=== PATIENT | female | born 1930 | race Asian ===

== ENCOUNTER 2016-11-01 11:53 | Inpatient (IN) | payer OTHER ==
[~2016-11-01] VITALS: Ht 162.6 cm; Wt 72.4 kg
[~2016-11-01 11:53] MED LIST: ALEN70TA14 PO; ASPI-556 GT; ATOR20TA86 PO; CLOP75 GT; DOCU250C76 GT; FLUO-125 PO; METF500T7 PO; MIRT15TA PO; MULT1TAB70 PO; PANT40TA25 PO; PREG50 PO; QUET50TA22 PO; TEMA15CA PO; [UNRECOGNIZED DRUG - CODE] PO
[2016-11-01 13:09] LABS: BASOPHILS % (AUTO) 0.4 % (0.0-2.0); EOSINOPHILS % (AUTO) 2.1 % (1.0-6.0); HEMOGLOBIN 13.4 g/dL (12.0-16.0); LYMPHOCYTES # (AUTO) 1.8 K/uL (1.0-4.8); LYMPHOCYTES % (AUTO) 17.4 % (22.0-44.0); MEAN CORPUSCULAR HEMOGLOBIN 31.7 pg (26.0-34.0); MEAN CORPUSCULAR HGB CONC 32.7 G/dL (31.0-37.0); MEAN CORPUSCULAR VOLUME 97 fL (80-100); MONOCYTES % (AUTO) 9.4 % (2.0-9.0); NEUTROPHILS # (AUTO) 7.4 K/uL (1.8-7.7); NEUTROPHILS % (AUTO) 70.7 % (40.0-70.0); PLATELET COUNT (AUTO) 290 K/uL (150-450); RED BLOOD CELL COUNT(AUTO) 4.24 MIL/uL (4.00-5.20); RED CELL DISTRIBUTION WIDTH 14.8 % (11.5-14.5); WHITE BLOOD COUNT (AUTO) 10.5 K/uL (4.5-11.0)
[2016-11-01 13:21] LABS: CALCIUM, TOTAL 10.7 mg/dL (8.8-10.5); POTASSIUM 4.3 mmol/L (3.5-5.1)
[2016-11-01 13:27] LABS: ALBUMIN 3.6 g/dL (3.4-5.0); BILIRUBIN,TOTAL 0.5 mg/dL (0.1-1.0); TOTAL PROTEIN, SERUM 8.3 g/dL (6.4-8.2)
[2016-11-01] MEDS ORDERED: SODIUM CHLORIDE 0.9% 1,000 ML IV ONE (14:00)
[2016-11-01] MEDS ORDERED: ACETAMINOPHEN 325 MG TABLET PO PRN (14:45)
[2016-11-01] MEDS ORDERED: 0.9% SODIUM CHLORIDE 10 ML SYRINGE IVP PRN (14:45)
[2016-11-01] MEDS ORDERED: ONDANSETRON HCL 4 MG/2 ML VIAL IVP PRN (14:45)
[2016-11-01 15:07] LABS: INR 1.1 (0.9-1.1); PROTHROMBIN TIME 12.1 SEC (9.4-11.6)
[2016-11-01 16:34] VITALS: BP 151/65
[2016-11-01] MEDS ORDERED: DEXTROSE 50%-WATER 25 GM/50 ML SYRINGE IVP PRN (18:00)
[2016-11-01] MEDS: SODIUM CHLORIDE 0.9% 1,000 ML IV SCH (18:26)
[2016-11-01] MEDS: INSULIN ASPART 100 UNITS/ML SQ PRN (18:27)
[2016-11-01 18:36] LABS: GLUCOSE,POINT OF CARE 317 MG/DL (70-110)
[2016-11-01 19:46] VITALS: BP 134/63
[2016-11-01 20:41] LABS: GLUCOSE COMMENT 1 Received Meds; GLUCOSE,POINT OF CARE 271 MG/DL (70-110)
[2016-11-02 00:26] VITALS: BP 159/89
[2016-11-02] MEDS: SODIUM CHLORIDE 0.9% 1,000 ML IV SCH ×3 (02:32→18:36)
[2016-11-02 04:18] VITALS: BP 155/80
[2016-11-02 06:16] LABS: GLUCOSE,POINT OF CARE 228 MG/DL (70-110)
[2016-11-02 08:00] VITALS: BP 141/56
[2016-11-02] MEDS ORDERED: DIATRIZOATE MEGLU/SOD 660/100 MG/ML 120 ML BOTTLE ONE (08:46)
[2016-11-02 10:46] LABS: BASOPHILS % (AUTO) 0.4 % (0.0-2.0); EOSINOPHILS % (AUTO) 2.3 % (1.0-6.0); HEMATOCRIT 37.9 % (36-46); HEMOGLOBIN 12.3 g/dL (12.0-16.0); LYMPHOCYTES % (AUTO) 22.8 % (22.0-44.0); MEAN CORPUSCULAR HEMOGLOBIN 31.6 pg (26.0-34.0); MEAN CORPUSCULAR HGB CONC 32.4 G/dL (31.0-37.0); MEAN CORPUSCULAR VOLUME 97 fL (80-100); MONOCYTES # (AUTO) 1.1 K/uL (0.1-1.0); MONOCYTES % (AUTO) 12.9 % (2.0-9.0); NEUTROPHILS # (AUTO) 5.3 K/uL (1.8-7.7); NEUTROPHILS % (AUTO) 61.6 % (40.0-70.0); PLATELET COUNT (AUTO) 278 K/uL (150-450); RED BLOOD CELL COUNT(AUTO) 3.89 MIL/uL (4.00-5.20); RED CELL DISTRIBUTION WIDTH 14.4 % (11.5-14.5); WHITE BLOOD COUNT (AUTO) 8.6 K/uL (4.5-11.0)
[2016-11-02 10:57] LABS: CALCIUM, TOTAL 9.4 mg/dL (8.8-10.5); CREATININE 1.66 mg/dL (0.60-1.30); POTASSIUM 4.6 mmol/L (3.5-5.1)
[2016-11-02 11:02] LABS: ALBUMIN 3.1 g/dL (3.4-5.0); BILIRUBIN,TOTAL 0.4 mg/dL (0.1-1.0); MAGNESIUM 2.1 mg/dL (1.80-2.40); PHOSPHORUS 2.8 mg/dL (2.5-4.9); TOTAL PROTEIN, SERUM 7.5 g/dL (6.4-8.2)
[2016-11-02] MEDS: INSULIN ASPART 100 UNITS/ML SQ PRN ×3 (11:34→20:28)
[2016-11-02 12:00] VITALS: BP 154/80
[2016-11-02 12:06] LABS: GLUCOSE COMMENT 1 Received Meds; GLUCOSE,POINT OF CARE 232 MG/DL (70-110)
[2016-11-02 15:20] VITALS: BP 155/86
[2016-11-02 17:41] LABS: GLUCOSE COMMENT 1 Received Meds; GLUCOSE,POINT OF CARE 273 MG/DL (70-110)
[2016-11-02] MEDS ORDERED: HYDROCODONE/ACETAMINOPHEN 5-325 MG TABLET PO PRN (19:00)
[2016-11-02] MEDS ORDERED: MetFORMIN HCL 500 MG ER TABLET PO SCH (19:00)
[2016-11-02 20:03] VITALS: BP 133/51
[2016-11-02] MEDS: TEMAZEPAM 15 MG CAPSULE PO SCH (20:23)
[2016-11-02] MEDS: ATORVASTATIN CALCIUM 20 MG TABLET PO SCH (20:23)
[2016-11-02] MEDS: QUEtiapine FUMARATE 25 MG TABLET PO SCH (20:23)
[2016-11-02] MEDS: PREGABALIN 50 MG CAPSULE PO SCH (20:23)
[2016-11-02] MEDS: MULTIVITAMINS, THERAPEUTIC TABLET PO SCH (20:23)
[2016-11-02] MEDS: FLUoxetine HCL 10 MG CAPSULE PO SCH (20:24)
[2016-11-02] MEDS: DOCUSATE SODIUM 250 MG CAPSULE PO SCH (20:25)
[2016-11-02] MEDS: MIRTAZAPINE 15 MG TABLET PO SCH (20:29)
[2016-11-02 20:35] LABS: GLUCOSE COMMENT 1 Received Meds; GLUCOSE,POINT OF CARE 255 MG/DL (70-110)
[2016-11-02] MEDS ORDERED: DOCUSATE SODIUM 250 MG CAPSULE PO SCH (21:00)
[2016-11-03 00:35] VITALS: BP 102/57
[2016-11-03 05:21] VITALS: BP 129/61
[2016-11-03] MEDS: SODIUM CHLORIDE 0.9% 1,000 ML IV SCH ×2 (05:29→10:00)
[2016-11-03] MEDS: INSULIN ASPART 100 UNITS/ML SQ PRN ×4 (05:59→21:55)
[2016-11-03 08:09] VITALS: BP 129/81
[2016-11-03 08:16] LABS: GLUCOSE COMMENT 1 Received Meds; GLUCOSE,POINT OF CARE 232 MG/DL (70-110)
[2016-11-03] MEDS: DOCUSATE SODIUM 250 MG CAPSULE PO SCH ×4 (09:00→21:00)
[2016-11-03] MEDS: MetFORMIN HCL 500 MG TABLET PO SCH ×2 (09:33→17:50)
[2016-11-03] MEDS: PANTOPRAZOLE SODIUM 40 MG DR TABLET PO SCH (09:34)
[2016-11-03] MEDS: CLOPIDOGREL BISULFATE 75 MG TABLET PO SCH (09:34)
[2016-11-03] MEDS: PREGABALIN 50 MG CAPSULE PO SCH ×3 (09:34→21:02)
[2016-11-03] MEDS: MULTIVITAMINS, THERAPEUTIC TABLET PO SCH (09:35)
[2016-11-03 11:20] LABS: BASOPHILS % (AUTO) 0.1 % (0.0-2.0); EOSINOPHILS % (AUTO) 2.3 % (1.0-6.0); HEMATOCRIT 34.6 % (36-46); HEMOGLOBIN 11.2 g/dL (12.0-16.0); LYMPHOCYTES # (AUTO) 1.8 K/uL (1.0-4.8); LYMPHOCYTES % (AUTO) 21.6 % (22.0-44.0); MEAN CORPUSCULAR HEMOGLOBIN 31.8 pg (26.0-34.0); MEAN CORPUSCULAR HGB CONC 32.4 G/dL (31.0-37.0); MEAN CORPUSCULAR VOLUME 98 fL (80-100); MONOCYTES % (AUTO) 12.3 % (2.0-9.0); NEUTROPHILS # (AUTO) 5.3 K/uL (1.8-7.7); NEUTROPHILS % (AUTO) 63.7 % (40.0-70.0); PLATELET COUNT (AUTO) 233 K/uL (150-450); RED BLOOD CELL COUNT(AUTO) 3.53 MIL/uL (4.00-5.20); RED CELL DISTRIBUTION WIDTH 14.9 % (11.5-14.5); WHITE BLOOD COUNT (AUTO) 8.4 K/uL (4.5-11.0)
[2016-11-03 11:41] LABS: ALBUMIN 2.7 g/dL (3.4-5.0); BILIRUBIN,TOTAL 0.3 mg/dL (0.1-1.0); CALCIUM, TOTAL 8.6 mg/dL (8.8-10.5); CREATININE 1.61 mg/dL (0.60-1.30); PHOSPHORUS 2.3 mg/dL (2.5-4.9); POTASSIUM 4.1 mmol/L (3.5-5.1); TOTAL PROTEIN, SERUM 6.6 g/dL (6.4-8.2)
[2016-11-03 12:12] VITALS: BP 149/68
[2016-11-03 13:10] LABS: GLUCOSE,POINT OF CARE 277 MG/DL (70-110)
[2016-11-03 18:06] LABS: GLUCOSE COMMENT 1 Received Meds; GLUCOSE,POINT OF CARE 258 MG/DL (70-110)
[2016-11-03 20:12] VITALS: BP 161/73
[2016-11-03] MEDS: FLUoxetine HCL 10 MG CAPSULE PO SCH (21:01)
[2016-11-03] MEDS: MIRTAZAPINE 15 MG TABLET PO SCH (21:01)
[2016-11-03] MEDS: TEMAZEPAM 15 MG CAPSULE PO SCH (21:02)
[2016-11-03] MEDS: QUEtiapine FUMARATE 25 MG TABLET PO SCH (21:02)
[2016-11-03] MEDS: ATORVASTATIN CALCIUM 20 MG TABLET PO SCH (21:02)
[2016-11-03 22:58] VITALS: BP 116/51
[2016-11-04 04:49] VITALS: BP 130/68
[2016-11-04] MEDS: INSULIN ASPART 100 UNITS/ML SQ PRN ×2 (06:34→11:18)
[2016-11-04 08:10] VITALS: BP 158/77
[2016-11-04] MEDS: CLOPIDOGREL BISULFATE 75 MG TABLET PO SCH (08:19)
[2016-11-04] MEDS: MetFORMIN HCL 500 MG TABLET PO SCH (08:19)
[2016-11-04] MEDS: PANTOPRAZOLE SODIUM 40 MG DR TABLET PO SCH (08:19)
[2016-11-04] MEDS: DOCUSATE SODIUM 250 MG CAPSULE PO SCH (08:19)
[2016-11-04] MEDS: PREGABALIN 50 MG CAPSULE PO SCH (08:19)
[2016-11-04] MEDS: MULTIVITAMINS, THERAPEUTIC TABLET PO SCH (08:19)
[2016-11-04 11:00] VITALS: BP 15/62
[2016-11-04 11:26] LABS: GLUCOSE COMMENT 1 Received Meds; GLUCOSE,POINT OF CARE 236 MG/DL (70-110)
[2016-11-04 11:46] LABS: GLUCOSE,POINT OF CARE 223 MG/DL (70-110)
[2016-11-04 11:46] LABS: GLUCOSE,POINT OF CARE 216 MG/DL (70-110)
== END 2016-11-04 14:15 | DRG 394 ==
LOC: EMS 11:55 → 6N 14:40
PROVIDERS: ADMIT Internal Medicine; ATTEND Internal Medicine
PROC: 0D20XUZ Change Feeding Device in Upper Intestinal Tract, External Approach (ICD-10-PCS; principal; 2016-11-02)
DX: K94.23 Gastrostomy malfunction (principal); N17.9 Acute kidney failure, unspecified; I69.354 Hemiplegia and hemiparesis following cerebral infarction affecting left non-dominant side; Z51.5 Encounter for palliative care; Z66 Do not resuscitate; E11.65 Type 2 diabetes mellitus with hyperglycemia; I25.10 Atherosclerotic heart disease of native coronary artery without angina pectoris; I71.4 Abdominal aortic aneurysm, without rupture; K21.9 Gastro-esophageal reflux disease without esophagitis; K59.00 Constipation, unspecified; E78.00 Pure hypercholesterolemia, unspecified; I50.9 Heart failure, unspecified; I11.0 Hypertensive heart disease with heart failure; G89.29 Other chronic pain; F03.90 Unspecified dementia, unspecified severity, without behavioral disturbance, psychotic disturbance, mood disturbance, and anxiety; M25.512 Pain in left shoulder; I69.319 Unspecified symptoms and signs involving cognitive functions following cerebral infarction; Z79.899 Other long term (current) drug therapy; Z79.02 Long term (current) use of antithrombotics/antiplatelets; Z79.82 Long term (current) use of aspirin; Z74.01 Bed confinement status; Z87.440 Personal history of urinary (tract) infections; Y84.8 Other medical procedures as the cause of abnormal reaction of the patient, or of later complication, without mention of misadventure at the time of the procedure; Y92.128 Other place in nursing home as the place of occurrence of the external cause; Y93.89 Activity, other specified; Y99.8 Other external cause status
CPT/HCPCS: 36245; 43246; 43760; 82962; 83735; 84100; 87106; 96360; 99285; J7030

== ENCOUNTER 2016-11-05 05:46 | Inpatient (IN) | payer OTHER ==
[~2016-11-05] VITALS: Ht 165.1 cm; Wt 72.4 kg
[2016-11-05 06:01] LABS: GLUCOSE,POINT OF CARE 371 MG/DL (70-110)
[2016-11-05] MEDS ORDERED: ACETAMINOPHEN 1000 MG/ISO-OSM 100 ML IV ONE (06:15)
[2016-11-05] MEDS ORDERED: 0.9% SODIUM CHLORIDE 10 ML SYRINGE IVP PRN (06:15)
[2016-11-05] MEDS ORDERED: SODIUM CHLORIDE 0.9% 1,000 ML IV ONE ×2 (06:15→07:15)
[2016-11-05] MEDS ORDERED: CefTRIAXone 1 GM/DEXTROSE 50 ML IV ONE (06:15)
[2016-11-05] MEDS ORDERED: AZITHROMYCIN 500 MG/NS 250 ML IV ONE (06:15)
[2016-11-05 06:38] LABS: HEMATOCRIT 44.8 % (36-46); HEMOGLOBIN 14.4 g/dL (12.0-16.0); MEAN CORPUSCULAR HEMOGLOBIN 31.9 pg (26.0-34.0); MEAN CORPUSCULAR HGB CONC 32.2 G/dL (31.0-37.0); MEAN CORPUSCULAR VOLUME 99 fL (80-100); PLATELET COUNT (AUTO) 358 K/uL (150-450); RED BLOOD CELL COUNT(AUTO) 4.52 MIL/uL (4.00-5.20); RED CELL DISTRIBUTION WIDTH 14.9 % (11.5-14.5)
[2016-11-05 06:44] LABS: WHITE BLOOD COUNT (AUTO) 35.1 K/uL (4.5-11.0)
[2016-11-05 06:57] LABS: APPEARANCE,URINE TURBID (CLEAR); GLUCOSE, URINE (UA) NEGATIVE (NEGATIVE); KETONES,URINE NEGATIVE (NEGATIVE); LEUKOCYTE ESTERASE ,URINE LARGE (NEGATIVE); OCCULT BLOOD,URINE LARGE (NEGATIVE); PROTEIN,URINE SEE CONFIRM (NEGATIVE)
[2016-11-05 06:58] LABS: ALANINE AMINOTRANSFERASE 59 U/L (12-78); ANION GAP 12 mmol/L (8-16); ASPARTATE AMINOTRANSFERASE 41 U/L (15-37); BILIRUBIN,TOTAL 0.2 mg/dL (0.1-1.0); CALCIUM, TOTAL 8.9 mg/dL (8.8-10.5); CARBON DIOXIDE 21 mmol/L (22-29); CHLORIDE 106 mmol/L (98-107); CREATININE 1.89 mg/dL (0.60-1.30); GLOMERULAR FILTR. RATE CALC 25 mL/min (>60); POTASSIUM 5.3 mmol/L (3.5-5.1); SODIUM SERUM 139 mmol/L (136-145); TOTAL PROTEIN, SERUM 8.2 g/dL (6.4-8.2); UREA NITROGEN, BLOOD 33 mg/dL (7-18)
[2016-11-05 07:01] LABS: ADD UA MICROSCOPIC YES
[2016-11-05 07:07] LABS: RBC,URINE Full Field /HPF (0-2); WBC,URINE Full Field /HPF (0-5)
[2016-11-05 07:08] LABS: SULFOSALICYLIC ACID,URINE 4+ (Negative)
[2016-11-05 07:09] LABS: B-TYPE NATRIURETIC PEPTIDE 1930 pg/mL (0-100)
[2016-11-05 07:11] LABS: BAND NEUTROPHILS % (MANUAL) 2 % (1-5); LYMPHOCYTES % (MANUAL) 10 % (22-44); METAMYELOCYTES % 1 % (0-0); TOTAL CELLS COUNTED 100
[2016-11-05 07:12] LABS: RBC MORPHOLOGY COMMENT NORMAL RBC MORPH; WBC MORPHOLOGY TOXIC GRANULATION
[2016-11-05 08:13] LABS: PROCALCITONIN (PCT) 0.15 ng/mL (<0.50)
[2016-11-05 08:30] LABS: REFLEX LACTIC ACID? YES YES
[2016-11-05] MEDS ORDERED: INSULIN REGULAR, HUMAN 100 UNITS/ML IVP ONE (08:45)
[2016-11-05 11:10] LABS: GLUCOSE,POINT OF CARE 244 MG/DL (70-110)
[2016-11-05 13:16] VITALS: BP 88/48
[2016-11-05] MEDS ORDERED: HYDROCODONE/ACETAMINOPHEN 5-325 MG TABLET PO PRN (13:45)
[2016-11-05 15:32] VITALS: BP 111/72
[2016-11-05] MEDS: DOCUSATE SODIUM 250 MG CAPSULE PO SCH ×2 (18:37→23:46)
[2016-11-05] MEDS: MetFORMIN HCL 500 MG ER TABLET PO SCH (18:37)
[2016-11-05] MEDS: PREGABALIN 50 MG CAPSULE PO SCH ×2 (18:37→23:46)
[2016-11-05] MEDS ORDERED: DEXTROSE 50%-WATER 25 GM/50 ML SYRINGE IVP PRN (19:15)
[2016-11-05] MEDS ORDERED: 0.9% SODIUM CHLORIDE 5 ML NEB SOLUTION NEB ONE (19:24)
[2016-11-05] MEDS: INSULIN ASPART 100 UNITS/ML SQ PRN ×2 (19:35→23:46)
[2016-11-05] MEDS: ALBUTEROL SULFATE 2.5 MG/0.5 ML NEB SOLUTION NEB SCH (19:40)
[2016-11-05] MEDS: IPRATROPIUM BROMIDE 0.5 MG/2.5 ML NEB SOLUTION NEB SCH (19:40)
[2016-11-05] MEDS: LACTOBACILLUS ACIDOPHILUS/BULGARICUS TABLET PO SCH (19:47)
[2016-11-05] MEDS: ATORVASTATIN CALCIUM 20 MG TABLET PO SCH (19:47)
[2016-11-05] MEDS: MIRTAZAPINE 15 MG TABLET PO SCH (19:47)
[2016-11-05] MEDS: FLUoxetine HCL 10 MG CAPSULE PO SCH (19:55)
[2016-11-05] MEDS: QUEtiapine FUMARATE 25 MG TABLET PO SCH (19:56)
[2016-11-05] MEDS ORDERED: IPRATROPIUM BROMIDE 0.5 MG/2.5 ML NEB SOLUTION NEB SCH (20:00)
[2016-11-05 20:03] VITALS: BP 77/39
[2016-11-05 20:11] LABS: GLUCOSE,POINT OF CARE 264 MG/DL (70-110)
[2016-11-05] MEDS ORDERED: MIRTAZAPINE 15 MG TABLET PO SCH (21:00)
[2016-11-05] MEDS ORDERED: METOPROLOL TARTRATE 25 MG TABLET PO SCH (21:00)
[2016-11-05 23:14] VITALS: BP 88/53
[2016-11-05] MEDS: TEMAZEPAM 15 MG CAPSULE PO SCH (23:47)
[2016-11-05 23:57] LABS: GLUCOSE COMMENT 1 Received Meds; GLUCOSE,POINT OF CARE 235 MG/DL (70-110)
[2016-11-06] MEDS: ALBUTEROL SULFATE 2.5 MG/0.5 ML NEB SOLUTION NEB SCH ×4 (02:05→19:30)
[2016-11-06] MEDS: IPRATROPIUM BROMIDE 0.5 MG/2.5 ML NEB SOLUTION NEB SCH ×4 (02:06→19:30)
[2016-11-06 04:43] VITALS: BP 97/43
[2016-11-06] MEDS: INSULIN ASPART 100 UNITS/ML SQ PRN ×3 (05:35→18:59)
[2016-11-06 06:15] LABS: GLUCOSE COMMENT 1 Received Meds; GLUCOSE,POINT OF CARE 210 MG/DL (70-110)
[2016-11-06] MEDS ORDERED: ALENDRONATE SODIUM 70 MG TABLET PO SCH (06:30)
[2016-11-06 06:32] LABS: BASOPHILS % (AUTO) 0.3 % (0.0-2.0); EOSINOPHILS % (AUTO) 0.4 % (1.0-6.0); HEMATOCRIT 33.2 % (36-46); HEMOGLOBIN 10.6 g/dL (12.0-16.0); LYMPHOCYTES % (AUTO) 14.7 % (22.0-44.0); MEAN CORPUSCULAR HEMOGLOBIN 31.6 pg (26.0-34.0); MEAN CORPUSCULAR HGB CONC 31.9 G/dL (31.0-37.0); MEAN CORPUSCULAR VOLUME 99 fL (80-100); MONOCYTES # (AUTO) 0.8 K/uL (0.1-1.0); NEUTROPHILS # (AUTO) 10.8 K/uL (1.8-7.7); NEUTROPHILS % (AUTO) 78.6 % (40.0-70.0); PLATELET COUNT (AUTO) 225 K/uL (150-450); RED BLOOD CELL COUNT(AUTO) 3.35 MIL/uL (4.00-5.20); RED CELL DISTRIBUTION WIDTH 15.1 % (11.5-14.5); WHITE BLOOD COUNT (AUTO) 13.7 K/uL (4.5-11.0)
[2016-11-06 07:21] VITALS: BP 120/58
[2016-11-06 07:32] LABS: ALBUMIN 2.4 g/dL (3.4-5.0); BILIRUBIN,TOTAL 0.2 mg/dL (0.1-1.0); CALCIUM, TOTAL 7.8 mg/dL (8.8-10.5); CREATININE 2.34 mg/dL (0.60-1.30); MAGNESIUM 2.3 mg/dL (1.80-2.40); PHOSPHORUS 2.8 mg/dL (2.5-4.9); POTASSIUM 5.1 mmol/L (3.5-5.1); TOTAL PROTEIN, SERUM 6.5 g/dL (6.4-8.2)
[2016-11-06] MEDS ORDERED: ASPIRIN 81 MG EC TABLET PO SCH (09:00)
[2016-11-06] MEDS ORDERED: PANTOPRAZOLE SODIUM 40 MG DR TABLET PO SCH (09:00)
[2016-11-06] MEDS: CLOPIDOGREL BISULFATE 75 MG TABLET PO SCH (09:14)
[2016-11-06] MEDS: DOCUSATE SODIUM 250 MG CAPSULE PO SCH ×3 (09:14→21:48)
[2016-11-06] MEDS: CefTRIAXone 1 GM/DEXTROSE 50 ML IV SCH (09:14)
[2016-11-06] MEDS: MULTIVITAMINS, THERAPEUTIC TABLET PO SCH (09:14)
[2016-11-06] MEDS: ASPIRIN 81 MG EC TABLET PO SCH (09:14)
[2016-11-06] MEDS: LACTOBACILLUS ACIDOPHILUS/BULGARICUS TABLET PO SCH ×4 (09:15→20:18)
[2016-11-06] MEDS: BUMETANIDE 1 MG TABLET PO SCH (09:15)
[2016-11-06] MEDS: MetFORMIN HCL 500 MG ER TABLET PO SCH ×2 (09:16→17:38)
[2016-11-06] MEDS: PREGABALIN 50 MG CAPSULE PO SCH ×3 (09:16→20:17)
[2016-11-06] MEDS: INSULIN GLARGINE,HUM.REC.ANLOG 100 UNITS/ML SQ SCH (09:17)
[2016-11-06] MEDS ORDERED: SODIUM CHLORIDE 0.9% 500 ML IV ONE (09:23)
[2016-11-06] MEDS: AZITHROMYCIN 500 MG/NS 250 ML IV SCH (11:19)
[2016-11-06] MEDS: PANTOPRAZOLE SODIUM 40 MG/VIAL IVP SCH (11:26)
[2016-11-06 11:29] VITALS: BP 90/46
[2016-11-06 11:57] LABS: GLUCOSE,POINT OF CARE 226 MG/DL (70-110)
[2016-11-06 15:42] VITALS: BP 93/49
[2016-11-06 18:36] LABS: GLUCOSE,POINT OF CARE 187 MG/DL (70-110)
[2016-11-06 19:09] VITALS: BP 132/73
[2016-11-06] MEDS: FLUoxetine HCL 10 MG CAPSULE PO SCH (20:17)
[2016-11-06] MEDS: ATORVASTATIN CALCIUM 20 MG TABLET PO SCH (20:18)
[2016-11-06] MEDS: QUEtiapine FUMARATE 25 MG TABLET PO SCH (20:18)
[2016-11-06] MEDS: SODIUM CHLORIDE 0.9% 1,000 ML IV SCH (21:48)
[2016-11-06] MEDS: MIRTAZAPINE 15 MG TABLET PO SCH (21:48)
[2016-11-06 23:28] VITALS: BP 133/63
[2016-11-06] MEDS: TEMAZEPAM 15 MG CAPSULE PO SCH (23:38)
[2016-11-07] MEDS: INSULIN ASPART 100 UNITS/ML SQ PRN ×5 (00:35→20:20)
[2016-11-07 00:43] LABS: GLUCOSE COMMENT 1 Received Meds; GLUCOSE,POINT OF CARE 205 MG/DL (70-110)
[2016-11-07] MEDS: IPRATROPIUM BROMIDE 0.5 MG/2.5 ML NEB SOLUTION NEB SCH ×4 (01:51→19:29)
[2016-11-07] MEDS: ALBUTEROL SULFATE 2.5 MG/0.5 ML NEB SOLUTION NEB SCH ×4 (01:51→19:29)
[2016-11-07 04:42] VITALS: BP 143/80
[2016-11-07 06:01] LABS: GLUCOSE COMMENT 1 Received Meds; GLUCOSE,POINT OF CARE 237 MG/DL (70-110)
[2016-11-07 08:22] VITALS: BP 108/49
[2016-11-07] MEDS: CefTRIAXone 1 GM/DEXTROSE 50 ML IV SCH (08:43)
[2016-11-07] MEDS: PANTOPRAZOLE SODIUM 40 MG/VIAL IVP SCH (10:11)
[2016-11-07] MEDS: AZITHROMYCIN 500 MG/NS 250 ML IV SCH (10:11)
[2016-11-07] MEDS: PREGABALIN 50 MG CAPSULE PO SCH ×3 (10:15→20:18)
[2016-11-07] MEDS: BUMETANIDE 1 MG TABLET PO SCH (10:15)
[2016-11-07] MEDS: MULTIVITAMINS, THERAPEUTIC TABLET PO SCH (10:15)
[2016-11-07] MEDS: MetFORMIN HCL 500 MG ER TABLET PO SCH ×2 (10:16→17:19)
[2016-11-07] MEDS: LACTOBACILLUS ACIDOPHILUS/BULGARICUS TABLET PO SCH ×4 (10:16→20:17)
[2016-11-07] MEDS: DOCUSATE SODIUM 250 MG CAPSULE PO SCH ×3 (10:17→20:19)
[2016-11-07] MEDS: CLOPIDOGREL BISULFATE 75 MG TABLET PO SCH (10:17)
[2016-11-07] MEDS: ASPIRIN 81 MG EC TABLET PO SCH (10:18)
[2016-11-07] MEDS: SODIUM CHLORIDE 0.9% 1,000 ML IV SCH (10:32)
[2016-11-07] MEDS: INSULIN GLARGINE,HUM.REC.ANLOG 100 UNITS/ML SQ SCH (10:55)
[2016-11-07 11:42] VITALS: BP 132/79
[2016-11-07 12:11] LABS: GLUCOSE COMMENT 1 Received Meds; GLUCOSE,POINT OF CARE 248 MG/DL (70-110)
[2016-11-07 16:08] VITALS: BP 159/96
[2016-11-07 17:42] LABS: GLUCOSE COMMENT 1 Received Meds; GLUCOSE,POINT OF CARE 247 MG/DL (70-110)
[2016-11-07 19:30] VITALS: BP 148/95
[2016-11-07] MEDS: ATORVASTATIN CALCIUM 20 MG TABLET PO SCH (20:18)
[2016-11-07] MEDS: FLUoxetine HCL 10 MG CAPSULE PO SCH (20:18)
[2016-11-07] MEDS: MIRTAZAPINE 15 MG TABLET PO SCH (20:18)
[2016-11-07] MEDS: QUEtiapine FUMARATE 25 MG TABLET PO SCH (20:18)
[2016-11-07] MEDS: FLUCONAZOLE 200 MG/NACL ISOOSM 100 ML IV SCH (20:19)
[2016-11-07] MEDS: TEMAZEPAM 15 MG CAPSULE PO SCH (21:00)
[2016-11-07] MEDS ORDERED: 0.9% SODIUM CHLORIDE 10 ML SYRINGE IVP PRN (21:45)
[2016-11-07 22:05] LABS: GLUCOSE COMMENT 1 Received Meds; GLUCOSE,POINT OF CARE 276 MG/DL (70-110)
[2016-11-07 23:25] VITALS: BP 132/61
[2016-11-08] VITALS (9 sets, daily range): BP systolic 120–162; BP diastolic 60–111
[2016-11-08] MEDS: ALBUTEROL SULFATE 2.5 MG/0.5 ML NEB SOLUTION NEB SCH ×4 (02:49→20:33)
[2016-11-08] MEDS: IPRATROPIUM BROMIDE 0.5 MG/2.5 ML NEB SOLUTION NEB SCH ×4 (02:49→20:33)
[2016-11-08] MEDS: SODIUM CHLORIDE 0.9% 1,000 ML IV SCH ×2 (03:50→23:43)
[2016-11-08] MEDS: INSULIN ASPART 100 UNITS/ML SQ PRN ×4 (06:09→20:55)
[2016-11-08 06:37] LABS: GLUCOSE COMMENT 1 Received Meds; GLUCOSE,POINT OF CARE 227 MG/DL (70-110)
[2016-11-08 06:39] LABS: BASOPHILS % (AUTO) 0.3 % (0.0-2.0); EOSINOPHILS % (AUTO) 1.4 % (1.0-6.0); HEMATOCRIT 31.5 % (36-46); HEMOGLOBIN 10.2 g/dL (12.0-16.0); LYMPHOCYTES % (AUTO) 10.3 % (22.0-44.0); MEAN CORPUSCULAR HEMOGLOBIN 31.6 pg (26.0-34.0); MEAN CORPUSCULAR HGB CONC 32.3 G/dL (31.0-37.0); MEAN CORPUSCULAR VOLUME 98 fL (80-100); MONOCYTES # (AUTO) 0.8 K/uL (0.1-1.0); MONOCYTES % (AUTO) 8.1 % (2.0-9.0); NEUTROPHILS # (AUTO) 7.9 K/uL (1.8-7.7); NEUTROPHILS % (AUTO) 79.9 % (40.0-70.0); PLATELET COUNT (AUTO) 209 K/uL (150-450); RED BLOOD CELL COUNT(AUTO) 3.22 MIL/uL (4.00-5.20); RED CELL DISTRIBUTION WIDTH 15.2 % (11.5-14.5); WHITE BLOOD COUNT (AUTO) 9.9 K/uL (4.5-11.0)
[2016-11-08] MEDS: CefTRIAXone 1 GM/DEXTROSE 50 ML IV SCH (08:35)
[2016-11-08 08:37] LABS: ALBUMIN 2.4 g/dL (3.4-5.0); BILIRUBIN,TOTAL 0.2 mg/dL (0.1-1.0); CALCIUM, TOTAL 7.8 mg/dL (8.8-10.5); CREATININE 1.7 mg/dL (0.60-1.30); MAGNESIUM 1.9 mg/dL (1.80-2.40); PHOSPHORUS 1.6 mg/dL (2.5-4.9); POTASSIUM 4.3 mmol/L (3.5-5.1); TOTAL PROTEIN, SERUM 6.6 g/dL (6.4-8.2)
[2016-11-08] MEDS: LACTOBACILLUS ACIDOPHILUS/BULGARICUS TABLET PO SCH (09:07)
[2016-11-08] MEDS: DOCUSATE SODIUM 250 MG CAPSULE PO SCH (09:08)
[2016-11-08] MEDS: BUMETANIDE 1 MG TABLET PO SCH (09:08)
[2016-11-08] MEDS: CLOPIDOGREL BISULFATE 75 MG TABLET PO SCH (09:08)
[2016-11-08] MEDS: PREGABALIN 50 MG CAPSULE PO SCH ×3 (09:08→21:48)
[2016-11-08] MEDS: PANTOPRAZOLE SODIUM 40 MG/VIAL IVP SCH (09:08)
[2016-11-08] MEDS: INSULIN GLARGINE,HUM.REC.ANLOG 100 UNITS/ML SQ SCH (09:09)
[2016-11-08] MEDS: AZITHROMYCIN 500 MG/NS 250 ML IV SCH (09:17)
[2016-11-08] MEDS ORDERED: ATORVASTATIN CALCIUM 20 MG TABLET GT SCH (10:42)
[2016-11-08] MEDS ORDERED: QUEtiapine FUMARATE 25 MG TABLET GT SCH (10:42)
[2016-11-08] MEDS ORDERED: TEMAZEPAM 15 MG CAPSULE GT SCH (10:42)
[2016-11-08] MEDS ORDERED: FLUoxetine HCL 10 MG CAPSULE GT SCH (10:42)
[2016-11-08] MEDS ORDERED: MIRTAZAPINE 15 MG TABLET GT SCH (10:43)
[2016-11-08] MEDS ORDERED: BUMETANIDE 1 MG TABLET GT SCH (10:43)
[2016-11-08 11:56] LABS: GLUCOSE,POINT OF CARE 248 MG/DL (70-110)
[2016-11-08] MEDS: LACTOBACILLUS ACIDOPHILUS/BULGARICUS TABLET GT SCH ×3 (12:12→21:47)
[2016-11-08] MEDS: ASPIRIN 81 MG CHEWABLE TABLET PEG SCH (12:13)
[2016-11-08] MEDS: MULTIVITAMINS WITH MINERALS, THERAPEUTIC 15 ML UDCUP GT SCH (12:13)
[2016-11-08] MEDS: POTASSIUM PHOS/SODIUM PHOS MIXTURE 1 POWDER PACKET GT SCH ×2 (12:13→21:46)
[2016-11-08] MEDS: DOCUSATE SODIUM 250 MG CAPSULE GT SCH ×2 (16:00→21:46)
[2016-11-08] MEDS ORDERED: MetFORMIN HCL 500 MG TABLET GT SCH (18:00)
[2016-11-08 19:11] LABS: GLUCOSE COMMENT 1 Received Meds; GLUCOSE,POINT OF CARE 285 MG/DL (70-110)
[2016-11-08] MEDS: FLUCONAZOLE 200 MG/NACL ISOOSM 100 ML IV SCH (21:46)
[2016-11-08 21:52] LABS: GLUCOSE COMMENT 1 Received Meds; GLUCOSE,POINT OF CARE 212 MG/DL (70-110)
[2016-11-09] MEDS: ALBUTEROL SULFATE 2.5 MG/0.5 ML NEB SOLUTION NEB SCH ×2 (02:59→07:36)
[2016-11-09] MEDS: IPRATROPIUM BROMIDE 0.5 MG/2.5 ML NEB SOLUTION NEB SCH ×2 (02:59→07:36)
[2016-11-09 04:00] VITALS: BP 134/75
[2016-11-09] MEDS: INSULIN ASPART 100 UNITS/ML SQ PRN ×2 (05:43→11:31)
[2016-11-09 06:12] LABS: GLUCOSE COMMENT 1 Received Meds; GLUCOSE,POINT OF CARE 197 MG/DL (70-110)
[2016-11-09 07:20] VITALS: BP 124/58
[2016-11-09] MEDS: CefTRIAXone 1 GM/DEXTROSE 50 ML IV SCH (09:32)
[2016-11-09] MEDS: AZITHROMYCIN 500 MG/NS 250 ML IV SCH (09:32)
[2016-11-09] MEDS: CLOPIDOGREL BISULFATE 75 MG TABLET PO SCH (09:33)
[2016-11-09] MEDS: POTASSIUM PHOS/SODIUM PHOS MIXTURE 1 POWDER PACKET GT SCH (09:33)
[2016-11-09] MEDS: ASPIRIN 81 MG CHEWABLE TABLET PEG SCH (09:33)
[2016-11-09] MEDS: LACTOBACILLUS ACIDOPHILUS/BULGARICUS TABLET GT SCH ×2 (09:33→11:31)
[2016-11-09] MEDS: PREGABALIN 50 MG CAPSULE PO SCH (09:33)
[2016-11-09] MEDS: PANTOPRAZOLE SODIUM 40 MG/VIAL IVP SCH (09:33)
[2016-11-09] MEDS: DOCUSATE SODIUM 250 MG CAPSULE GT SCH (09:34)
[2016-11-09] MEDS: MULTIVITAMINS WITH MINERALS, THERAPEUTIC 15 ML UDCUP GT SCH (09:34)
[2016-11-09] MEDS: INSULIN GLARGINE,HUM.REC.ANLOG 100 UNITS/ML SQ SCH (10:02)
[2016-11-09 10:07] LABS: GLUCOSE,POINT OF CARE 238 MG/DL (70-110)
[2016-11-09 11:00] VITALS: BP 135/65
[2016-11-09 13:17] LABS: GLUCOSE COMMENT 1 Received Meds; GLUCOSE,POINT OF CARE 284 MG/DL (70-110)
[2016-11-10] MEDS ORDERED: MULT9LIQ GT (02:39)
[2016-11-10] MEDS ORDERED: BUME1TAB30 PO (02:39)
[2016-11-10] MEDS ORDERED: PANT40SU GT (02:39)
[2016-11-10] MEDS ORDERED: LACT1TAB10 GT (02:39)
[2016-11-10] MEDS ORDERED: AZITH2005L PO (02:39)
[2016-11-10] MEDS ORDERED: CEFX1I IV (02:39)
[2016-11-12] MEDS ORDERED: ALENDRONATE SODIUM 70 MG TABLET GT SCH (06:30)
== END 2016-11-09 14:00 | DRG 871 ==
LOC: EMS 05:47 → 6N 10:45
PROVIDERS: ADMIT Internal Medicine; ATTEND Internal Medicine
PROC: 5A09357 Assistance with Respiratory Ventilation, Less than 24 Consecutive Hours, Continuous Positive Airway Pressure (ICD-10-PCS; principal; 2016-11-05)
DX: A41.9 Sepsis, unspecified organism (principal); J18.9 Pneumonia, unspecified organism; J96.01 Acute respiratory failure with hypoxia; I50.32 Chronic diastolic (congestive) heart failure; I69.354 Hemiplegia and hemiparesis following cerebral infarction affecting left non-dominant side; I13.0 Hypertensive heart and chronic kidney disease with heart failure and stage 1 through stage 4 chronic kidney disease, or unspecified chronic kidney disease; B37.49 Other urogenital candidiasis; Z66 Do not resuscitate; Z51.5 Encounter for palliative care; E11.65 Type 2 diabetes mellitus with hyperglycemia; K59.00 Constipation, unspecified; K21.9 Gastro-esophageal reflux disease without esophagitis; G89.29 Other chronic pain; M25.519 Pain in unspecified shoulder; R62.7 Adult failure to thrive; I25.10 Atherosclerotic heart disease of native coronary artery without angina pectoris; M19.90 Unspecified osteoarthritis, unspecified site; I71.4 Abdominal aortic aneurysm, without rupture; I69.319 Unspecified symptoms and signs involving cognitive functions following cerebral infarction; N18.9 Chronic kidney disease, unspecified; E11.22 Type 2 diabetes mellitus with diabetic chronic kidney disease; L89.151 Pressure ulcer of sacral region, stage 1; Z79.899 Other long term (current) drug therapy; Z79.82 Long term (current) use of aspirin; Z79.02 Long term (current) use of antithrombotics/antiplatelets; Z74.01 Bed confinement status; Z93.1 Gastrostomy status; Z87.440 Personal history of urinary (tract) infections
CPT/HCPCS: 82962; 83605; 83735; 84100; 84145; 87040; 87081; 87086; 93005; 94640; 94660; 96365; 96366; 96368; 96375; 99291; C9113; J0131; J0456; J0696; J1450; J1815; J7030; J7040

== ENCOUNTER 2016-11-10 02:23 | Inpatient (IN) | payer OTHER ==
[~2016-11-10] VITALS: Ht 162.6 cm; Wt 70.3 kg
[2016-11-10] MEDS ORDERED: BUME1TAB30 PO (02:39)
[2016-11-10] MEDS ORDERED: PANT40SU GT (02:39)
[2016-11-10] MEDS ORDERED: LACT1TAB10 GT (02:39)
[2016-11-10] MEDS ORDERED: AZITH2005L PO (02:39)
[2016-11-10] MEDS ORDERED: MULT9LIQ GT (02:39)
[2016-11-10] MEDS ORDERED: CEFX1I IV (02:39)
[2016-11-10] MEDS ORDERED: PIPERACILLIN/TAZO 3.375 GM/D5W 50 ML IV ONE (02:45)
[2016-11-10] MEDS ORDERED: SODIUM CHLORIDE 0.9% 1,000 ML IV ONE (02:45)
[2016-11-10] MEDS ORDERED: IPRATROPIUM BROMIDE 0.5 MG/2.5 ML NEB SOLUTION NEB ONE (02:45)
[2016-11-10] MEDS ORDERED: ALBUTEROL SULFATE 5 MG/ML 20 ML NEB SOLN [BULK] NEB ONE (02:45)
[2016-11-10 02:49] LABS: ABG A-A DIFF O2 106.1 mmHg (10-20.0); ABG BASE EXCESS -4.9 mmol/L (-2.0-3.0); ABG HCO3 20.5 mmol/L (22.0-26.0); ABG OXYHEMOGLOBIN 93.5 % (94.0-100.0); ABG PCO2 47 mmHg (35-45); ABG PH 7.283 (7.35-7.450); ALLEN TEST, BLOOD GAS POS
[2016-11-10 03:10] LABS: BASOPHILS % (AUTO) 0.2 % (0.0-2.0); EOSINOPHILS % (AUTO) 1.4 % (1.0-6.0); HEMATOCRIT 36.8 % (36-46); HEMOGLOBIN 11.7 g/dL (12.0-16.0); LYMPHOCYTES # (AUTO) 1.1 K/uL (1.0-4.8); LYMPHOCYTES % (AUTO) 10.7 % (22.0-44.0); MEAN CORPUSCULAR HEMOGLOBIN 31.1 pg (26.0-34.0); MEAN CORPUSCULAR HGB CONC 31.7 G/dL (31.0-37.0); MEAN CORPUSCULAR VOLUME 98 fL (80-100); MONOCYTES # (AUTO) 0.6 K/uL (0.1-1.0); MONOCYTES % (AUTO) 5.6 % (2.0-9.0); NEUTROPHILS # (AUTO) 8.9 K/uL (1.8-7.7); NEUTROPHILS % (AUTO) 82.1 % (40.0-70.0); PLATELET COUNT (AUTO) 318 K/uL (150-450); RED BLOOD CELL COUNT(AUTO) 3.75 MIL/uL (4.00-5.20); RED CELL DISTRIBUTION WIDTH 14.7 % (11.5-14.5); WHITE BLOOD COUNT (AUTO) 10.8 K/uL (4.5-11.0)
[2016-11-10 03:18] LABS: PROTHROMBIN TIME 10.9 SEC (9.4-11.6)
[2016-11-10 03:30] LABS: B-TYPE NATRIURETIC PEPTIDE 1820 pg/mL (0-100)
[2016-11-10 03:31] LABS: ANION GAP 14 mmol/L (8-16); CALCIUM, TOTAL 8.5 mg/dL (8.8-10.5); CARBON DIOXIDE 23 mmol/L (22-29); CHLORIDE 109 mmol/L (98-107); CREATININE 1.82 mg/dL (0.60-1.30); GLOMERULAR FILTR. RATE CALC 26 mL/min (>60); POTASSIUM 5.4 mmol/L (3.5-5.1); SODIUM SERUM 146 mmol/L (136-145); UREA NITROGEN, BLOOD 36 mg/dL (7-18)
[2016-11-10 03:33] LABS: LACTIC ACID 2.1 mmol/L (0.4-2.0)
[2016-11-10 03:36] LABS: ALANINE AMINOTRANSFERASE 51 U/L (12-78); ALBUMIN 2.8 g/dL (3.4-5.0); ASPARTATE AMINOTRANSFERASE 60 U/L (15-37); BILIRUBIN,TOTAL 0.4 mg/dL (0.1-1.0); CREATINE KINASE, TOTAL 71 U/L (26-192); TOTAL PROTEIN, SERUM 7.9 g/dL (6.4-8.2)
[2016-11-10] MEDS ORDERED: ACETAMINOPHEN 1000 MG/ISO-OSM 100 ML IV ONE (03:45)
[2016-11-10 04:03] LABS: APPEARANCE,URINE CLOUDY (CLEAR); GLUCOSE, URINE (UA) >=1000 mg/dL (NEGATIVE); KETONES,URINE NEGATIVE (NEGATIVE); LEUKOCYTE ESTERASE ,URINE MODERATE (NEGATIVE); OCCULT BLOOD,URINE LARGE (NEGATIVE); PROTEIN,URINE SEE CONFIRM (NEGATIVE)
[2016-11-10 04:05] LABS: ADD UA MICROSCOPIC YES
[2016-11-10 04:22] LABS: INFLUENZA TYPE B NEGATIVE FOR TYPE B (NEGATIVE)
[2016-11-10 04:24] LABS: SULFOSALICYLIC ACID,URINE 3+ (Negative)
[2016-11-10 04:25] LABS: RBC,URINE 26-50 /HPF (0-2); SQUAMOUS EPITHELIAL CELL,UR Few /LPF (None Seen); WBC,URINE >100 /HPF (0-5)
[2016-11-10 05:00] LABS: REFLEX LACTIC ACID? YES YES
[2016-11-10] MEDS ORDERED: ACETAMINOPHEN 325 MG TABLET PO PRN ×2 (13:15→16:45)
[2016-11-10] MEDS ORDERED: 0.9% SODIUM CHLORIDE 10 ML SYRINGE IVP PRN (13:15)
[2016-11-10] MEDS ORDERED: BISACODYL 10 MG RECTAL RECTAL SUPPOSITORY PR PRN (16:45)
[2016-11-10] MEDS ORDERED: DEXTROSE 50%-WATER 25 GM/50 ML SYRINGE IVP PRN (16:45)
[2016-11-10] MEDS ORDERED: VANCOMYCIN HCL 1 GM/D5% WATER 200 ML IV ONE (17:00)
[2016-11-10] MEDS ORDERED: VANCOMYCIN HCL 1.25 GM in DEXTROSE 5%-WATER 250 ML IV ONE (17:00)
[2016-11-10] MEDS: ASPIRIN 81 MG CHEWABLE TABLET PEG SCH (17:57)
[2016-11-10 18:36] LABS: GLUCOSE,POINT OF CARE 221 MG/DL (70-110)
[2016-11-10 18:54] VITALS: BP 155/85
[2016-11-10 19:40] VITALS: BP 153/82
[2016-11-10] MEDS ORDERED: SODIUM CHLORIDE 0.9% 250 ML IV ONE (20:05)
[2016-11-10] MEDS: PIPERACILLIN SODIUM/TAZOBACTAM 2.25 GM in DEXTROSE 5%-WATER 50 ML IV SCH (20:14)
[2016-11-10] MEDS: FUROSEMIDE 40 MG/4 ML VIAL IVP SCH (20:18)
[2016-11-10] MEDS: ALBUTEROL SULFATE 2.5 MG/0.5 ML NEB SOLUTION NEB SCH ×2 (20:28→23:56)
[2016-11-10] MEDS: IPRATROPIUM BROMIDE 0.5 MG/2.5 ML NEB SOLUTION NEB SCH ×2 (20:29→23:56)
[2016-11-10] MEDS: DOCUSATE SODIUM 100 MG CAPSULE PO SCH (21:00)
[2016-11-10] MEDS: HEPARIN SODIUM,PORCINE 5,000 UNITS/ML VIAL SQ SCH (22:20)
[2016-11-10] MEDS: SIMVASTATIN 20 MG TABLET PO SCH (22:20)
[2016-11-10 23:19] VITALS: BP 137/82
[2016-11-11] MEDS: PIPERACILLIN SODIUM/TAZOBACTAM 2.25 GM in DEXTROSE 5%-WATER 50 ML IV SCH ×4 (02:25→20:16)
[2016-11-11] MEDS: IPRATROPIUM BROMIDE 0.5 MG/2.5 ML NEB SOLUTION NEB SCH ×6 (03:26→22:48)
[2016-11-11] MEDS: ALBUTEROL SULFATE 2.5 MG/0.5 ML NEB SOLUTION NEB SCH ×6 (03:26→22:47)
[2016-11-11 04:13] VITALS: BP 136/83
[2016-11-11 07:22] LABS: BASOPHILS # (AUTO) 0.03 K/uL (0.00-0.20); BASOPHILS % (AUTO) 0.2 % (0.0-2.0); EOSINOPHILS # (AUTO) 0.14 K/uL (0.00-0.70); EOSINOPHILS % (AUTO) 0.91 % (1.0-6.0); HEMATOCRIT 33.9 % (36-46); HEMOGLOBIN 10.9 g/dL (12.0-16.0); LYMPHOCYTES # (AUTO) 1.6 K/uL (1.0-4.8); LYMPHOCYTES % (AUTO) 10.3 % (22.0-44.0); MEAN CORPUSCULAR HEMOGLOBIN 31.4 pg (26.0-34.0); MEAN CORPUSCULAR HGB CONC 32.2 G/dL (31.0-37.0); MEAN CORPUSCULAR VOLUME 98 fL (80-100); MONOCYTES # (AUTO) 1.4 K/uL (0.1-1.0); MONOCYTES % (AUTO) 9.5 % (2.0-9.0); NEUTROPHILS # (AUTO) 11.9 K/uL (1.8-7.7); NEUTROPHILS % (AUTO) 79.1 % (40.0-70.0); PLATELET COUNT (AUTO) 302 K/uL (150-450); RED BLOOD CELL COUNT(AUTO) 3.47 MIL/uL (4.00-5.20); RED CELL DISTRIBUTION WIDTH 15.5 % (11.5-14.5); WHITE BLOOD COUNT (AUTO) 15.1 K/uL (4.5-11.0)
[2016-11-11 07:34] VITALS: BP 149/87
[2016-11-11 07:54] LABS: ALBUMIN 2.7 g/dL (3.4-5.0); BILIRUBIN,TOTAL 0.4 mg/dL (0.1-1.0); CALCIUM, TOTAL 8.7 mg/dL (8.8-10.5); CREATININE 1.65 mg/dL (0.60-1.30); POTASSIUM 4.8 mmol/L (3.5-5.1); TOTAL PROTEIN, SERUM 7.2 g/dL (6.4-8.2)
[2016-11-11] MEDS: FUROSEMIDE 40 MG/4 ML VIAL IVP SCH ×2 (08:25→20:16)
[2016-11-11] MEDS: ASPIRIN 81 MG CHEWABLE TABLET PEG SCH (08:25)
[2016-11-11] MEDS: HEPARIN SODIUM,PORCINE 5,000 UNITS/ML VIAL SQ SCH ×2 (08:25→20:16)
[2016-11-11] MEDS: PANTOPRAZOLE SODIUM 40 MG DR TABLET PO SCH (08:25)
[2016-11-11] MEDS: VANCOMYCIN HCL 500 MG in DEXTROSE 5%-WATER 100 ML IV SCH (08:27)
[2016-11-11] MEDS: DOCUSATE SODIUM 100 MG CAPSULE PO SCH ×3 (08:30→21:00)
[2016-11-11 10:58] VITALS: BP 141/76
[2016-11-11 12:02] LABS: GLUCOSE,POINT OF CARE 228 MG/DL (70-110)
[2016-11-11 12:12] LABS: GLUCOSE COMMENT 1 Received Meds; GLUCOSE,POINT OF CARE 182 MG/DL (70-110)
[2016-11-11] MEDS: INSULIN REGULAR, HUMAN 100 UNITS/ML SQ PRN ×2 (13:56→18:19)
[2016-11-11 15:28] VITALS: BP 123/74
[2016-11-11 17:57] LABS: GLUCOSE COMMENT 1 Received Meds; GLUCOSE,POINT OF CARE 286 MG/DL (70-110)
[2016-11-11 19:40] VITALS: BP 124/69
[2016-11-11] MEDS: SIMVASTATIN 20 MG TABLET PO SCH (20:16)
[2016-11-11 23:58] VITALS: BP 129/76
[2016-11-12] MEDS: PIPERACILLIN SODIUM/TAZOBACTAM 2.25 GM in DEXTROSE 5%-WATER 50 ML IV SCH ×4 (02:10→20:38)
[2016-11-12] MEDS: INSULIN REGULAR, HUMAN 100 UNITS/ML SQ PRN ×4 (02:19→18:13)
[2016-11-12] MEDS: ALBUTEROL SULFATE 2.5 MG/0.5 ML NEB SOLUTION NEB SCH ×6 (03:30→23:01)
[2016-11-12] MEDS: IPRATROPIUM BROMIDE 0.5 MG/2.5 ML NEB SOLUTION NEB SCH ×6 (03:30→23:01)
[2016-11-12 05:02] VITALS: BP 147/74
[2016-11-12 07:11] LABS: BASOPHILS # (AUTO) 0.05 K/uL (0.00-0.20); BASOPHILS % (AUTO) 0.6 % (0.0-2.0); EOSINOPHILS # (AUTO) 0.24 K/uL (0.00-0.70); EOSINOPHILS % (AUTO) 2.86 % (1.0-6.0); HEMATOCRIT 33.9 % (36-46); LYMPHOCYTES % (AUTO) 11.2 % (22.0-44.0); MEAN CORPUSCULAR HEMOGLOBIN 31.8 pg (26.0-34.0); MEAN CORPUSCULAR HGB CONC 32.3 G/dL (31.0-37.0); MEAN CORPUSCULAR VOLUME 99 fL (80-100); MONOCYTES # (AUTO) 0.9 K/uL (0.1-1.0); MONOCYTES % (AUTO) 10.3 % (2.0-9.0); NEUTROPHILS # (AUTO) 6.4 K/uL (1.8-7.7); PLATELET COUNT (AUTO) 301 K/uL (150-450); RED BLOOD CELL COUNT(AUTO) 3.45 MIL/uL (4.00-5.20); RED CELL DISTRIBUTION WIDTH 16.3 % (11.5-14.5); WHITE BLOOD COUNT (AUTO) 8.5 K/uL (4.5-11.0)
[2016-11-12 07:24] LABS: CALCIUM, TOTAL 8.8 mg/dL (8.8-10.5); CREATININE 1.89 mg/dL (0.60-1.30); PHOSPHORUS 2.3 mg/dL (2.5-4.9); POTASSIUM 4.2 mmol/L (3.5-5.1); TOTAL PROTEIN, SERUM 7.2 g/dL (6.4-8.2)
[2016-11-12 08:19] VITALS: BP 156/93
[2016-11-12] MEDS: DOCUSATE SODIUM 100 MG CAPSULE PO SCH ×2 (09:49→20:39)
[2016-11-12] MEDS: HEPARIN SODIUM,PORCINE 5,000 UNITS/ML VIAL SQ SCH ×2 (09:51→20:39)
[2016-11-12] MEDS: FUROSEMIDE 40 MG/4 ML VIAL IVP SCH ×2 (09:51→20:38)
[2016-11-12] MEDS: PANTOPRAZOLE SODIUM 40 MG DR TABLET PO SCH (09:51)
[2016-11-12] MEDS: ASPIRIN 81 MG CHEWABLE TABLET PEG SCH (09:51)
[2016-11-12 12:11] VITALS: BP 139/80
[2016-11-12] MEDS: VANCOMYCIN HCL 500 MG in DEXTROSE 5%-WATER 100 ML IV SCH (12:24)
[2016-11-12] MEDS: VITAMINS A & D 60 GM OINTMENT TP SCH ×2 (12:24→20:42)
[2016-11-12] MEDS ORDERED: SODIUM CHLORIDE 0.9% 250 ML IV ONE (14:52)
[2016-11-12 16:03] VITALS: BP 144/79
[2016-11-12 19:47] LABS: GLUCOSE,POINT OF CARE 320 MG/DL (70-110)
[2016-11-12 19:49] VITALS: BP 150/71
[2016-11-12] MEDS: SIMVASTATIN 20 MG TABLET PO SCH (20:39)
[2016-11-12 23:30] VITALS: BP 151/87
[2016-11-13] MEDS: PIPERACILLIN SODIUM/TAZOBACTAM 2.25 GM in DEXTROSE 5%-WATER 50 ML IV SCH ×4 (01:03→20:03)
[2016-11-13] MEDS: INSULIN REGULAR, HUMAN 100 UNITS/ML SQ PRN ×4 (01:05→18:06)
[2016-11-13] MEDS: ALBUTEROL SULFATE 2.5 MG/0.5 ML NEB SOLUTION NEB SCH ×5 (01:59→19:28)
[2016-11-13] MEDS: IPRATROPIUM BROMIDE 0.5 MG/2.5 ML NEB SOLUTION NEB SCH ×5 (01:59→19:29)
[2016-11-13 04:21] VITALS: BP 154/78
[2016-11-13 05:52] LABS: GLUCOSE COMMENT 1 Received Meds; GLUCOSE,POINT OF CARE 311 MG/DL (70-110)
[2016-11-13 05:52] LABS: GLUCOSE COMMENT 1 Received Meds; GLUCOSE,POINT OF CARE 376 MG/DL (70-110)
[2016-11-13 07:41] VITALS: BP 157/81
[2016-11-13 07:44] LABS: CALCIUM, TOTAL 9.7 mg/dL (8.8-10.5); CREATININE 1.72 mg/dL (0.60-1.30); POTASSIUM 4.4 mmol/L (3.5-5.1)
[2016-11-13] MEDS: VITAMINS A & D 60 GM OINTMENT TP SCH ×2 (08:12→20:05)
[2016-11-13] MEDS: FUROSEMIDE 40 MG/4 ML VIAL IVP SCH ×2 (09:15→20:01)
[2016-11-13] MEDS: DOCUSATE SODIUM 100 MG CAPSULE PO SCH ×2 (09:17→20:02)
[2016-11-13] MEDS: HEPARIN SODIUM,PORCINE 5,000 UNITS/ML VIAL SQ SCH ×2 (09:17→20:01)
[2016-11-13] MEDS: PANTOPRAZOLE SODIUM 40 MG DR TABLET PO SCH (09:17)
[2016-11-13] MEDS: ASPIRIN 81 MG CHEWABLE TABLET PEG SCH (09:18)
[2016-11-13] MEDS: VANCOMYCIN HCL 500 MG in DEXTROSE 5%-WATER 100 ML IV SCH (10:26)
[2016-11-13 11:18] VITALS: BP 153/85
[2016-11-13] MEDS ORDERED: INSULIN DETEMIR 100 UNITS/ML SQ SCH (12:30)
[2016-11-13] MEDS ORDERED: 0.9% SODIUM CHLORIDE 10 ML SYRINGE IVP PRN (12:30)
[2016-11-13 15:21] VITALS: BP 134/75
[2016-11-13] MEDS ORDERED: AUD NEB (17:35)
[2016-11-13] MEDS ORDERED: DSS100 PO (17:37)
[2016-11-13] MEDS ORDERED: FURO20 PEG (17:37)
[2016-11-13] MEDS ORDERED: HEPA500017 SQ (17:43)
[2016-11-13] MEDS ORDERED: IPRNEB IH (17:45)
[2016-11-13] MEDS ORDERED: SIMV-260 GT (18:27)
[2016-11-13] MEDS ORDERED: INSU100V12 SQ (18:27)
[2016-11-13] MEDS ORDERED: ACET-2247 PO (18:28)
[2016-11-13] MEDS ORDERED: PETR113O TP (18:28)
[2016-11-13] MEDS ORDERED: BISA5TAB12 RC (18:30)
[2016-11-13 19:54] VITALS: BP 137/70
[2016-11-13] MEDS: SIMVASTATIN 20 MG TABLET PO SCH (20:01)
[2016-11-13 20:27] LABS: GLUCOSE,POINT OF CARE 339 MG/DL (70-110)
[2016-11-13 20:46] LABS: GLUCOSE,POINT OF CARE 322 MG/DL (70-110)
[2016-11-13 20:46] LABS: GLUCOSE,POINT OF CARE 317 MG/DL (70-110)
[2016-11-13 20:46] LABS: GLUCOSE COMMENT 1 Received Meds; GLUCOSE,POINT OF CARE 340 MG/DL (70-110)
[2016-11-13 20:46] LABS: GLUCOSE COMMENT 1 Received Meds; GLUCOSE,POINT OF CARE 329 MG/DL (70-110)
== END 2016-11-13 20:40 | DRG 871 ==
LOC: EMS 02:24 → 5S 05:00 → UNDOADMIN 05:00 → 5S 17:14
PROVIDERS: ADMIT Internal Medicine; ATTEND Internal Medicine
PROC: 5A09357 Assistance with Respiratory Ventilation, Less than 24 Consecutive Hours, Continuous Positive Airway Pressure (ICD-10-PCS; principal; 2016-11-10)
DX: A41.9 Sepsis, unspecified organism (principal); E43 Unspecified severe protein-calorie malnutrition; I50.23 Acute on chronic systolic (congestive) heart failure; J69.0 Pneumonitis due to inhalation of food and vomit; N39.0 Urinary tract infection, site not specified; N17.9 Acute kidney failure, unspecified; I13.0 Hypertensive heart and chronic kidney disease with heart failure and stage 1 through stage 4 chronic kidney disease, or unspecified chronic kidney disease; E87.0 Hyperosmolality and hypernatremia; F03.91 Unspecified dementia, unspecified severity, with behavioral disturbance; I69.354 Hemiplegia and hemiparesis following cerebral infarction affecting left non-dominant side; Z66 Do not resuscitate; E11.65 Type 2 diabetes mellitus with hyperglycemia; E11.22 Type 2 diabetes mellitus with diabetic chronic kidney disease; G89.29 Other chronic pain; M25.519 Pain in unspecified shoulder; E87.5 Hyperkalemia; Z74.01 Bed confinement status; I25.10 Atherosclerotic heart disease of native coronary artery without angina pectoris; M62.48 Contracture of muscle, other site; E78.00 Pure hypercholesterolemia, unspecified; L30.9 Dermatitis, unspecified; K21.9 Gastro-esophageal reflux disease without esophagitis; M19.90 Unspecified osteoarthritis, unspecified site; R13.10 Dysphagia, unspecified; N18.3 Chronic kidney disease, stage 3 (moderate); R62.7 Adult failure to thrive; I71.2 Thoracic aortic aneurysm, without rupture; Z93.1 Gastrostomy status; Z79.899 Other long term (current) drug therapy; Z79.82 Long term (current) use of aspirin; Z79.01 Long term (current) use of anticoagulants; Z68.26 Body mass index [BMI] 26.0-26.9, adult; Z86.718 Personal history of other venous thrombosis and embolism; Z87.01 Personal history of pneumonia (recurrent); Z87.440 Personal history of urinary (tract) infections; Z79.2 Long term (current) use of antibiotics; Z79.02 Long term (current) use of antithrombotics/antiplatelets
CPT/HCPCS: 51702; 71250; 76604; 82805; 82962; 83605; 83615; 83735; 84100; 84155; 87040; 87081; 87086; 87804; 93005; 93306; 94640; 94660; 96365; 96367; 96374; 99291; J0131; J1644; J1940; J2543; J3370; J7030; J7050; J7060